=== PATIENT | male | born 1985 | race Caucasian/White ===

== ENCOUNTER 2020-09-17 21:31 | Emergency (ER) | payer OTHER ==
[~2020-09-17] VITALS: Ht 177.8 cm; Wt 99.8 kg
[2020-09-17] MEDS ORDERED: ATIVAN0.5 M1 PO (22:45)
[2020-09-17 22:55] VITALS: BP 156/93
== END 2020-09-17 22:55 | disposition home or self-care (01) ==
LOC: M.ERS 21:31
DX: F15.23 Other stimulant dependence with withdrawal (principal); Z88.2 Allergy status to sulfonamides